=== PATIENT | female | born 1960 | race Caucasian/White ===

== ENCOUNTER 2017-06-19 07:30 | Emergency (ER) | payer OTHER ==
[~2017-06-19] VITALS: Ht 165.1 cm; Wt 74.3 kg
[~2017-06-19 07:30] MED LIST: ALBU8.5H5 INH; CIPR500T87 PO; HYDR-3240 PO; HYDR25TA6 PO; LISI-167 PO; TAMO20TA PO
[2017-06-19] MEDS ORDERED: ALBUTEROL/IPRATROPIUM 2.5MG/0.5MG, 3 ML NPPB PRN (08:00)
[2017-06-19] MEDS ORDERED: ALBUTEROL/IPRATROPIUM 2.5MG/0.5MG, 3 ML ONE (08:12)
[2017-06-19 08:17] LABS: RAPID INFLUENZA A Negative (Negative); RAPID INFLUENZA B Negative (Negative)
[2017-06-19 08:38] VITALS: BP 140/86
== END 2017-06-19 08:58 | disposition home or self-care (01) ==
LOC: ED 08:30
DX: J45.41 Moderate persistent asthma with (acute) exacerbation (principal); I10 Essential (primary) hypertension
CPT/HCPCS: 71046; 87400; 94640; 99285; J7512; J7620

== ENCOUNTER 2020-01-22 22:34 | Emergency (ER) | payer OTHER ==
[~2020-01-22] VITALS: Ht 165.1 cm; Wt 80.0 kg
[2020-01-22 22:52] VITALS: BP 150/91
== END 2020-01-23 02:30 | disposition left against medical advice (07) ==
LOC: ED 01-23
DX: R06.00 Dyspnea, unspecified (principal); J45.909 Unspecified asthma, uncomplicated
CPT/HCPCS: 71046; 93005; 99283